=== PATIENT | male | born 1965 | race Caucasian/White ===

== ENCOUNTER 2021-12-20 14:16 | Emergency (ER) | payer OTHER, SELFPAY ==
[2021-12-20 14:30] VITALS: BP 141/96; PULSE 81; RESP 17; TEMP 36.6; O2SAT 98; BMI 22.9
--- NOTE | 2021-12-20 17:31 | ED.EYEPROB ---
HPI - Eye Problem <LORAINE Busch - Last Filed: 12/20/21 18:32> General Chief complaint: Eye Problems Stated complaint: Right eye swelling/redness Time Seen by Provider: 12/20/21 16:54 Source: patient Mode of arrival: Ambulatory History of Present Illness HPI Narrative: This is a 56-year-old male presents to the emergency department with erythema to the right sclera, denies any trauma. He states it feels irritated now and he can feel a bulge of the blood in the white part of his eye, denies any itching or rubbing of his eye, states it could have happened in his sleep. He denies any acute vision changes. States that he had floaters in his vision while using equipment at work looking at computer screens. Denies any vision changes at this time, denies any eye pain, denies any eye pain with movement Related Data Home Medications Medication Instructions Recorded Confirmed No Known Home Medications 12/20/21 12/20/21 Allergies Allergy/AdvReac Type Severity Reaction Status Date / Time No Known Drug Allergies Allergy Verified 12/20/21 14:33 Review of Systems <LORAINE Busch - Last Filed: 12/20/21 18:32> Review of Systems Narrative: Review of systems is negative for acute abnormalities unless otherwise noted in HPI Patient History <LORAINE Busch - Last Filed: 12/20/21 18:32> Social History Smoking Status: Never smoker Smoking Status: Never smoker alcohol intake frequency: other Substance Use Type: does not use Exam <LORAINE Busch - Last Filed: 12/20/21 18:32> Narrative Exam Narrative: Reviewed vitals signs and nursing notes. General: cooperative, comfortable, in no acute distress, well groomed HEENT: Right scleral injection, appears to have mild edema verses superficial blood clot on the anterior aspect of his right sclera to the right of his iris. Visual acuity with corrective lenses is 2020 bilaterally and with both, without corrective lenses, right eye is 20 30. EOMI, PERRLA, without conjunctival injection, patient denies sensation of pruritus or pain, states his right eye feels irritated because he can feel a small bulge over the area with blood. Slit-lamp exam completed by Dr. Daniels. Initial Vital Signs Initial Vital Signs: Vital Signs Temperature 98 F 12/20/21 14:30 Pulse Rate 81 12/20/21 14:30 Respiratory Rate 17 12/20/21 14:30 Blood Pressure 141/96 H 12/20/21 14:30 Pulse Oximetry 98 12/20/21 14:30 Oxygen Delivery Method 12/20/21 14:30 <Danii Daniels DO - Last Filed: 12/23/21 17:51> Initial Vital Signs Initial Vital Signs: Vital Signs Temperature 98 F 12/20/21 14:30 Pulse Rate 81 12/20/21 14:30 Respiratory Rate 17 12/20/21 14:30 Blood Pressure 141/96 H 12/20/21 14:30 Pulse Oximetry 98 12/20/21 14:30 Oxygen Delivery Method 12/20/21 14:30 Course <Lary Corea [facility] - Last Filed: 12/20/21 18:32> Orders Ordered: Discontinued Medications Fluorescein Sodium (Fluorescein 1 Mg Strip) 1 mg EYE-RIGHT NOW ONE Stop: 12/20/21 17:14 Last Admin: 12/20/21 17:41 Dose: 1 mg Documented By: MELINA Proparacaine HCl (Proparacaine 0.5% Ophth Jackie) 1 drops EYE-RIGHT NOW ONE Stop: 12/20/21 17:14 Last Admin: 12/20/21 17:40 Dose: 1 1000units Documented By: MELINA Vital Signs Vital signs: Vital Signs - 8 hr 12/20/21 14:30 12/20/21 18:08 Temperature 98 F Pulse Rate 81 77 Respiratory Rate 17 16 Blood Pressure 141/96 H 129/84 Pulse Oximetry 98 99 Oxygen Delivery Method Room Air Room Air <Danii Daniels DO - Last Filed: 12/23/21 17:51> Orders Ordered: Discontinued Medications Fluorescein Sodium (Fluorescein 1 Mg Strip) 1 mg EYE-RIGHT NOW ONE Stop: 12/20/21 17:14 Last Admin: 12/20/21 17:41 Dose: 1 mg Documented By: MELINA Proparacaine HCl (Proparacaine 0.5% Ophth Jackie) 1 drops EYE-RIGHT NOW ONE Stop: 12/20/21 17:14 Last Admin: 12/20/21 17:40 Dose: 1 1000units Documented By: MELINA Vital Signs Vital signs: Vital Signs - 8 hr 12/20/21 14:30 12/20/21 18:08 Temperature 98 F Pulse Rate 81 77 Respiratory Rate 17 16 Blood Pressure 141/96 H 129/84 Pulse Oximetry 98 99 Oxygen Delivery Method Room Air Room Air MDM - Eye Problem <Lary Corea, [employer] - Last Filed: 12/20/21 18:32> MDM Narrative Medical decision making narrative: This is a 56-year-old male who presents to the emergency department atraumatic with a subconjunctival hemorrhage on the right eye, without vision changes, eye pain with eye movement, increased eye pressure, corneal abrasion, known trauma or other. Slit-lamp exam completed by Dr. Daniels. She reports that she saw a small blood clot on the anterior aspect of his right sclera/subconjunctival hemorrhage. Encouraged patient to avoid heavy lifting, ice pack 20 minutes at a time and return if he has eye pain with eye movement, encouraged Tylenol and return for any worsening condition. Patient is appropriate and amenable to discharge home. Vital signs are stable on repeat examination is unremarkable. Patient has been informed of results. Patient has been given strict return to ER precautions for any new or worsening symptoms. Patient understands to follow up closely with outpatient providers as instructed. Patient understands plan and agrees to discharge home. All questions and concerns answered at this time. Discharge Plan Departure Patient Disposition: Home Clinical Impression: Subconjunctival hemorrhage Instructions: DI for Subconjunctival Hemorrhage Activity Restrictions/Additional Instructions: *You have been diagnosed with subconjunctival hematoma *What to do: At this time if ruptured blood vessel in her eye. Likely happen from heavy lifting. His recommend an ice pack 20 minutes at a time frozen bag of PEs or corn would suffice. *Continue to take medications as directed Tylenol 1000 mg every 6 hours if needed for [id number] pain *Follow up with your primary care provider in 2-3 days or call [phone] *Return to ER if you should have increasing swelling pain visual changes or any new, worsening or concerning symptoms Prescriptions: No Action No Known Home Medications Stand Alone Forms: Work Release Note Visit Report Forms: Patient Portal/API <Danii Daniels DO - Last Filed: 12/23/21 17:51> Cosign ED Attending Cosignature Attestation: Itself conjunctiva hemorrhage present. Stained with fluorescein no dye uptake examined under slit lamp no foreign body no laceration. Given instructions for ice and supportive care only I was immediately available in the department for consultation. Documentation has been reviewed. I agree with assessment and plan.
[2021-12-20] MEDS: PROPARACAINE 0.5% OPHTH SOL 1 DROPS EYE-RIGHT (17:40)
[2021-12-20] MEDS: FLUORESCEIN 1 MG STRIP EYE-RIGHT (17:41)
[2021-12-20 18:08] VITALS: BP 129/84; PULSE 77; RESP 16; O2SAT 99
== END 2021-12-20 18:09 | disposition home or self-care (01) ==
PROVIDERS: Emergency Provider Nurse Practitioner Critical Care Medicine
DX: H11.31 Conjunctival hemorrhage, right eye (principal)
CPT/HCPCS: 99282